=== PATIENT | male | born 1965 | race Caucasian/White ===

== ENCOUNTER → 2021-04-27 | Outpatient (CLI) | payer OTHER ==
--- NOTE | 2021-04-27 12:05 | KCIC ---
EXAM: XR EXAM OF ANKLE_RIGHT 3VIEWS 04/27/2021 10:47 AM CLINICAL INDICATION: Right ankle pain for 3 to 4 days, slight swelling. No injury. COMPARISON: None TECHNIQUE: AP, oblique, and lateral views of the right ankle FINDINGS: No acute fracture. Alignment is normal. The talar dome is intact. There is mild lateral so ft tissue swelling. IMPRESSION: No acute osseous abnormality. Mild lateral soft tissue swelling. Electronically signed by: Paula Church MD (04/27/2021 12:03 PM) [id number]
== END ==
LOC: KCIC 10:44
PROVIDERS: ATTEND Family Medicine
DX: M79.89 Other specified soft tissue disorders (principal); M25.571 Pain in right ankle and joints of right foot
CPT/HCPCS: 73610